=== PATIENT | female | born 1965 | race Caucasian/White ===

== ENCOUNTER 2016-04-13 19:43 | Emergency (ER) | payer OTHER ==
[~2016-04-13] VITALS: Ht 160 cm; Wt 83.9 kg
[2016-04-13 21:18] LABS: ADD MIUA? YES; BILIRUBIN NEGATIVE; BLOOD NEGATIVE; COLOR STRAW ((YELLOW)); GLUCOSE (STRIP) NEGATIVE; KETONES NEGATIVE; LEUKOCYTES SMALL; NITRITE NEGATIVE; PROTEIN (STRIP) NEGATIVE; SPECIFIC GRAVITY 1.006 (1.000-1.030); UROBILINOGEN 0.2 MG/DL (0.2-1.0)
[2016-04-13 21:43] LABS: BACTERIA NONE SEEN /HPF; EPITHELIAL CELLS RARE /HPF; MUCUS NONE SEEN /LPF; RED BLOOD CELLS 0-5 /HPF (0-5); WHITE BLOOD CELLS 20-30 /HPF (0-5)
[2016-04-13] MEDS ORDERED: KEFLEX500 MG PO (21:47)
[2016-04-13] MEDS ORDERED: PYRIDIUM200 MG PO (21:51)
[2016-04-13 22:02] VITALS: BP 148/79
== END 2016-04-13 22:03 | disposition home or self-care (01) ==
LOC: EME 19:43
DX: N39.0 Urinary tract infection, site not specified (principal); Z87.440 Personal history of urinary (tract) infections; F17.200 Nicotine dependence, unspecified, uncomplicated
CPT/HCPCS: 81003; 99281; 99284